=== PATIENT | female | born 1990 | race Two or more races ===

== ENCOUNTER 2016-11-12 14:01 | Emergency (ER) | payer OTHER ==
[2016-11-12] MEDS ORDERED: ONDANSETRON 4 MG/2 ML VIAL IVP STA (15:01)
[2016-11-12] MEDS ORDERED: HALOPERIDOL 5 MG/ML VIAL IVP STA (15:01)
[2016-11-12] MEDS ORDERED: SODIUM CHLORIDE 0.9% 1,000 ML IV ONE (15:01)
[2016-11-12] MEDS ORDERED: HALOPERIDOL 5 MG/ML VIAL ONE (15:04)
[2016-11-12] MEDS ORDERED: ONDANSETRON 4 MG/2 ML VIAL ONE (15:04)
[2016-11-12] MEDS ORDERED: BENZTROPINE 2 MG/2 ML AMP IVP STA (15:24)
[2016-11-12] MEDS ORDERED: BENZTROPINE 2 MG/2 ML AMP ONE (15:26)
== END 2016-11-12 16:29 | disposition home or self-care (01) ==
DX: G43.909 Migraine, unspecified, not intractable, without status migrainosus (principal); K52.9 Noninfective gastroenteritis and colitis, unspecified; F17.200 Nicotine dependence, unspecified, uncomplicated

== ENCOUNTER 2017-03-27 18:08 | Emergency (ER) | payer OTHER ==
[2017-03-27] MEDS ORDERED: predniSONE 20 MG TABLET PO STA (18:18)
[2017-03-27] MEDS ORDERED: HYDROmorphone 1 MG/ML SYRINGE IM STA ×3 (18:18→20:26)
[2017-03-27] MEDS ORDERED: KETOROLAC 60 MG/2 ML VIAL IM STA (18:18)
[2017-03-27] MEDS ORDERED: HYDROmorphone 1 MG/ML SYRINGE ONE ×3 (18:22→20:35)
[2017-03-27] MEDS ORDERED: predniSONE 20 MG TABLET ONE (18:23)
[2017-03-27] MEDS ORDERED: KETOROLAC 60 MG/2 ML VIAL ONE (18:23)
--- NOTE | 2017-03-27 18:34 | ED Physician Documentation ---
PD HPI BACK PAIN - Stated complaint Stated Complaint: L LEG PX - Chief complaint Chief Complaint: Ext Problem - History obtained from History obtained from: Patient - Additional information Additional information: Moving rocks 2 weeks ago at home and felt pain in Left back now worse with pain down posterior L buttock. Not associated with weakness, numbness, tingling legs or saddle anesthesia or incontinence. 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 : None HEENT: None Psych: Depression, Anxiety Musculoskeletal: Osteoarthritis, Other Derm: None - Past Surgical History Past Surgical History: Yes Ortho: Shoulder arthroplasty - Present Medications Home Medications: Ambulatory Orders Medication Instructions Recorded Confirmed traZODone [Desyrel] 100 mg PO DAILY 03/14/15 03/27/17 Loratadine [Claritin] 1 tab PO DAILY 11/16/15 03/27/17 Cyclobenzaprine [Flexeril] 10 mg PO TID PRN #20 tablet 03/27/17 Oxycodone HCl/Acetaminophen 1 - 2 tab PO Q4H PRN #15 tablet 03/27/17 [Percocet 5-325 mg Tablet] predniSONE [Deltasone] 20 mg PO [id number] #21 tab 03/27/17 - Allergies Allergies/Adverse Reactions: Allergies Allergy/AdvReac Type Severity Reaction Status Date / Time diphenhydramine HCl * AdvReac Itching Verified 03/27/17 18:21 [From Benadryl] haloperidol [From Haldol] AdvReac Itching Verified 03/27/17 18:21 haloperidol lactate * AdvReac Itching Verified 03/27/17 18:21 [From Haldol] - Social History Does the pt smoke?: Yes Smoking Status: Current every day smoker Does the pt drink ETOH?: Yes Does the pt have substance abuse?: No - Immunizations Immunizations are current?: Yes - POLST Patient has POLST: No PD ED PE NORMAL - Vitals Vital signs reviewed: Yes - General General: Alert and oriented X 3, Other (in pain/winces with motion) - Neck Neck: Supple, no meningeal sign - Cardiac Cardiac: RRR, No murmur - Respiratory Respiratory: No respiratory distress, Clear bilaterally - Abdomen Abdomen: Normal bowel sounds, Soft, Non tender - Back Back: No spinal TTP, Other (Tender L sciatic notch, The patient has equal and normal patellar and Achilles reflexes bilaterally. Normal sensation in all areas of the legs. Patient denies saddle anesthesia. Normal strength in flexion and extension at the ankles, knees and flexion of the hips.) - Extremities Extremities: No deformity - Neuro Neuro: Alert and oriented X 3, No motor deficit, No sensory deficit, Normal speech - Psych Psych: Normal mood, Normal affect Results - Vitals Vitals: Vital Signs - 24 hr 03/27/17 03/27/17 03/27/17 18:12 19:04 20:25 Temperature 36.7 C 37.1 C 36.7 C Heart Rate 97 83 69 Respiratory 20 20 20 Rate Blood Pressure 123/74 111/69 120/77 O2 Saturation 98 98 98 Oxygen O2 Source Room air PD MEDICAL DECISION MAKING - ED course ED course: Spinal epidural abscess was considered in this patient. The patient has no fever , is not diabetic, has no spinal tenderness, does not use IV drugs, and no bilateral neurologic symptoms. Therefore, spinal epidural abscess is considered exceedingly unlikely. She was administered divided doses of medications with good relief of her pain and became functional again. Remained afebrile. Departure - Departure Disposition: 01 Home, Self Care Clinical Impression: Sciatica of left side Condition: Good Record reviewed to determine appropriate education?: Yes Instructions: ED Sciatica Prescriptions: predniSONE [Deltasone] 20 mg PO [id number] #21 tab Cyclobenzaprine [Flexeril] 10 mg PO TID PRN #20 tablet PRN Reason: Pain Oxycodone HCl/Acetaminophen [Percocet 5-325 mg Tablet] 1 - 2 tab PO Q4H PRN #15 tablet PRN Reason: Pain Comments: Call your doctor to arrange a follow up appointment. Make the next available appointment. In the interim return anytime if worse or if new symptoms develop. Do not drink or drive while on narcotic pain medicine. Note that many narcotic pain relievers also contain tylenol/acetaminophen. Please ensure that your total dose of acetaminophen from all sources does not exceed 3 grams (3000mg) per day. You may constipated on this medication, take a stool softener such as "Colace" twice a day while you are on it. Also recommend a kaot-esn-ptjekdo laxative such as senna or MiraLAX any day that you do not have a bowel movement. If you received narcotic pain medication in the emergency department, do not drive or operate machinery for the next 24 hours. Forms: Activity restrictions Discharge Date/Time: 03/27/17 21:29
[2017-03-27] MEDS ORDERED: diazePAM INJ 5 MG/ML SYRINGE IM STA (19:05)
[2017-03-27] MEDS ORDERED: diazePAM INJ 5 MG/ML SYRINGE ONE (19:08)
[2017-03-27 20:25] VITALS: BP 120/77
[2017-03-27] MEDS ORDERED: oxyCODONE/ACET 5/325 Prepack 4 PO STA (21:13)
[2017-03-27] MEDS ORDERED: CYCLOBENZAPRINE 10 MG Prepack 2 PO PRN (21:13)
[2017-03-27] MEDS ORDERED: CYCLOBENZAPRINE 10 MG Prepack 2 PO ONE (21:16)
[2017-03-27] MEDS ORDERED: oxyCODONE/ACET 5/325 Prepack 4 PO ONE (21:16)
== END 2017-03-27 21:29 | disposition home or self-care (01) ==
LOC: ED 18:08
DX: M54.42 Lumbago with sciatica, left side (principal); M19.90 Unspecified osteoarthritis, unspecified site; F17.200 Nicotine dependence, unspecified, uncomplicated
CPT/HCPCS: 96372; 99283; J1170; J7512

== ENCOUNTER 2017-07-01 14:43 | Emergency (ER) | payer OTHER ==
[2017-07-01 14:54] VITALS: BP 125/80
[2017-07-01] MEDS ORDERED: DEXAMETHASONE 10 MG/ML VIAL PO STA (15:36)
[2017-07-01] MEDS ORDERED: HYDROcod/ACETAM 5/325 MG TABLET PO STA (15:36)
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
[2017-07-01] MEDS ORDERED: DEXAMETHASONE 10 MG/ML VIAL ONE (15:48)
[2017-07-01] MEDS ORDERED: HYDROcod/ACETAM 5/325 MG TABLET ONE (15:48)
== END 2017-07-01 16:19 | disposition home or self-care (01) ==
LOC: ED 14:43
DX: M54.42 Lumbago with sciatica, left side (principal); M54.41 Lumbago with sciatica, right side; M19.90 Unspecified osteoarthritis, unspecified site; F17.200 Nicotine dependence, unspecified, uncomplicated
CPT/HCPCS: 99283; A9270

== ENCOUNTER 2018-06-28 23:50 | Emergency (ER) | payer OTHER ==
[2018-06-29] VITALS: BP 124/88
[2018-06-29 00:08] LABS: BILIRUBIN,URINE NEGATIVE (NEGATIVE); GLUCOSE, URINE (UA) NEGATIVE (NEGATIVE); KETONES,URINE (UA) NEGATIVE (NEGATIVE); LEUKOCYTE ESTERASE, URINE SMALL (NEGATIVE); NITRITE,URINE NEGATIVE (NEGATIVE); OCCULT BLOOD,URINE LARGE (NEGATIVE); PROTEIN,URINE TRACE mg/dL (NEGATIVE); UROBILINOGEN,URINE 0.2 (NORMAL) E.U./dL (NORMAL)
[2018-06-29 00:10] LABS: CLARITY,URINE HAZY (CLEAR); HCG UR QUAL NEGATIVE
[2018-06-29 00:14] LABS: RBC,URINE TNTC /HPF (0-5)
[2018-06-29 00:15] LABS: BACTERIA,URINE Few /HPF (None Seen); SQUAMOUS EPITHELIAL CELL,UR FEW Squamous (<= Few)
[2018-06-29] MEDS ORDERED: IBUPROFEN 600 MG TABLET PO STA (00:23)
[2018-06-29] MEDS ORDERED: PHENAZOPYRIDINE 100 MG TABLET PO STA (00:23)
[2018-06-29] MEDS ORDERED: cephALEXin 250 MG CAPSULE PO STA (00:23)
--- NOTE | 2018-06-29 00:27 | ED Physician Documentation ---
PD HPI FEMALE - Stated complaint Stated Complaint: BLOOD IN URINE - Chief complaint Chief Complaint: General - History obtained from History obtained from: Patient - History of Present Illness Timing - onset: Today Timing - details: Gradual onset, Still present Associated symptoms: Pelvic pain, Dysuria, Urinary frequency, Hematuria Similar symptoms before: Has not had sx before Recently seen: Not recently seen - Additional information Additional information: Patient is a 28 year old female with no significant past medical history who is presenting to the emergency department for dysuria and hematuria. patient states that her symptoms started today and have become progressively worse. patient noticed blood in her urine this evening. patient took tylenol for pain with little relief. Review of Systems Ten Systems: 10 systems reviewed and negative Constitutional: denies: Fever, Chills GI: reports: Abdominal Pain. 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 HEENT: None Psych: Depression, Anxiety Musculoskeletal: Osteoarthritis, Other Derm: None - Past Surgical History Past Surgical History: Yes Ortho: Shoulder arthroplasty - Present Medications Home Medications: Ambulatory Orders Medication Instructions Recorded Confirmed HYDROcod/ACETAM 5/325 [[place] 5/325] 1 ea PO Q6H PRN #10 tablet 07/01/17 predniSONE [Deltasone] 20 mg PO [id number] #21 tab 07/01/17 Cephalexin [Keflex] 500 mg PO Q8HR 7 Days capsule 06/29/18 Ondansetron Odt [Zofran] 4 mg TL Q6H PRN #14 tablet 06/29/18 Phenazopyridine HCl [Pyridium] 200 mg PO TID PRN #6 tablet 06/29/18 - Allergies Allergies/Adverse Reactions: Allergies Allergy/AdvReac Type Severity Reaction Status Date / Time diphenhydramine HCl * AdvReac Itching Verified 06/29/18 00:00 [From Benadryl] haloperidol [From Haldol] AdvReac Itching Verified 06/29/18 00:00 haloperidol lactate * AdvReac Itching Verified 06/29/18 00:00 [From Haldol] - Social History Does the pt smoke?: Yes Smoking Status: Current every day smoker Does the pt drink ETOH?: Yes Does the pt have substance abuse?: No - Immunizations Immunizations are current?: Yes - POLST Patient has POLST: No PD ED PE NORMAL - Vitals Vital signs reviewed: Yes - General General: Alert and oriented X 3 - HEENT HEENT: Atraumatic - Cardiac Cardiac: RRR - Respiratory Respiratory: No respiratory distress - Derm Derm: Normal color, Warm and dry - Extremities Extremities: No deformity - Neuro Neuro: Alert and oriented X 3, No motor deficit, Normal speech - Psych Psych: Normal mood PD ED PE EXPANDED - General General: Alert, In Pain - Abdomen Abdomen: Tender to palpation, Suprapubic. No: Rebound, Guarding Results - Vitals Vitals: Vital Signs - 24 hr 06/28/18 23:59 Temperature 37.1 C Heart Rate 79 Respiratory 16 Rate Blood Pressure 124/88 H O2 Saturation 98 Oxygen O2 Source Room air - Labs Labs: Laboratory Tests 06/29/18 00:05 Urine Color YELLOW Urine Clarity HAZY Urine pH 6.0 Ur Specific Angle [place] 1.025 Urine Protein TRACE Urine Glucose (UA) NEGATIVE Urine Ketones NEGATIVE Urine Occult Blood LARGE H Urine Nitrite NEGATIVE Urine Bilirubin NEGATIVE Urine Urobilinogen 0.2 (NORMAL) Ur Leukocyte Esterase SMALL H Urine RBC TNTC H Urine WBC 11-25 H Ur Squamous Epith Cells FEW Squamous Urine Bacteria Few Ur Microscopic Review INDICATED Urine Culture Comments INDICATED Urine HCG, Qual NEGATIVE PD MEDICAL DECISION MAKING - ED course Complexity details: reviewed old records, reviewed results, re-evaluated patient, considered differential, d/w patient, d/w family ED course: Patient was seen and examined at bedside. urine was collected and consistent with cystitis. patient was treated with keflex, pyridium and ibuprofen. Patient was able to tolerate PO without difficulty. Patient required no further work up at this time and was stable for discharge with outpatient follow up. - Sepsis Event Vital Signs: Vital Signs - 24 hr 06/28/18 23:59 Temperature 37.1 C Heart Rate 79 Respiratory 16 Rate Blood Pressure 124/88 H O2 Saturation 98 Oxygen O2 Source Room air Departure - Departure Disposition: 01 Home, Self Care Clinical Impression: Cystitis with hematuria Condition: Good Instructions: ED UTI Cystitis Female Follow-Up: Hever Juarez MD [Primary Care Provider] - Within 3 Days Prescriptions: Cephalexin [Keflex] 500 mg PO Q8HR 7 Days capsule Ondansetron Odt [Zofran] 4 mg TL Q6H PRN #14 tablet PRN Reason: Nausea / Vomiting Phenazopyridine HCl [Pyridium] 200 mg PO TID PRN #6 tablet PRN Reason: dysuria Comments: Your symptoms today are being caused by a bladder infection. You have been started on antibiotics and will need to take them three times a day for the next week. you can take the pyridium, motrin and tylenol as needed for pain. You should follow up with your doctor if symtoms persist. you should return to the emergency department at any time for new, worsening or uncontrollable symptoms.
== END 2018-06-29 00:41 | disposition home or self-care (01) ==
LOC: ED 23:50
DX: N30.91 Cystitis, unspecified with hematuria (principal); F17.200 Nicotine dependence, unspecified, uncomplicated
CPT/HCPCS: 81001; 81025; 87086; 99283; A9270; 81003

== ENCOUNTER 2018-10-21 12:57 | Outpatient (CLI) | payer OTHER ==
[2018-10-21] MEDS ORDERED: GADOBUTROL 7.5 MMOL/7.5 ML VIAL ONE (13:04)
[2018-10-21] MEDS ORDERED: GADOBUTROL 7.5 MMOL/7.5 ML VIAL IVP ONE (14:28)
--- NOTE | 2018-10-21 14:45 | MRI Report ---
Reason: HYPERPROLACTINEMIA Procedure Date: 10/21/2018 Accession Number: [id number] / [id number] Procedure: MRI - Brain W/WO CPT Code: FULL RESULT: EXAM: MRI BRAIN WITHOUT AND WITH CONTRAST EXAM DATE: 10/21/2018 01:06 PM. CLINICAL HISTORY: 28-year-old woman with hyperprolactinemia COMPARISON: None. TECHNIQUE: Multiplanar, multisequence T1-weighted and fluid-sensitive MR sequences of the brain were performed. Sequences optimized for pituitary evaluation. Other: None. IV Contrast: 7.5 cc Gadavist. FINDINGS: Parenchyma: No evidence of acute infarct on diffusion weighted sequence. Parenchyma demonstrates normal signal intensity on T1- and T2-weighted sequences. No evidence of prior hemorrhage. No abnormal enhancement. Pituitary: Symmetric and normal in size measuring approximate 4.5 mm craniocaudal. Enhancement in the left adenohypophysis is mildly delayed, but margins are indistinct (for example, image 23, series 801), indeterminate. Signal is homogeneous on T2 weighted sequence. The stalk is midline. Suprasellar cistern is clear. Adjacent cavernous sinuses are symmetric and normal in size without evidence of underlying mass. Ventricles and Extra-axial Spaces: Ventricles are symmetric and normal in size for age. Extra-axial spaces are unremarkable. No abnormal enhancement. Orbits: Unremarkable. Sinuses: Paranasal sinuses and mastoid air cells are clear. Major Vascular Flow Voids: Intact. Dural Venous Sinuses and Major Central Veins: Patent on post-contrast images. IMPRESSION: 1. Enhancement in the left adenohypophysis of the pituitary is mildly delayed, but no discrete lesion is identified. Findings are indeterminate and may represent normal, asymmetric enhancement but underlying microadenoma cannot be excluded. RADIA
== END 2018-10-21 12:58 | disposition home or self-care (01) ==
LOC: DI 12:57
PROVIDERS: ATTEND Family Medicine
DX: E22.1 Hyperprolactinemia (principal)
CPT/HCPCS: 70553; A9585

== ENCOUNTER 2019-04-11 13:31 | Emergency (ER) | payer OTHER ==
[2019-04-11 13:40] VITALS: BP 120/75
--- NOTE | 2019-04-11 15:36 | ED Physician Documentation ---
History of Present Illness - Stated complaint Stated Complaint: LEFT KNEE INJURY - Chief complaint Chief Complaint: Trauma Ext - History obtained from History obtained from: Patient - Additonal information Additional information: Patient is a 29-year-old female with history of bipolar disorder presenting with left knee pain and swelling of unknown origin. Patient denies any particular trauma, fall, or inciting incident. Patient describes anterior pain directly below the patella. She denies any overlying skin changes. She does have limited range of motion because of pain and swelling, but denies any change in sensation or strength to the leg. Patient has been able to bear weight without issue. No other improving or worsening factors noted. 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 HEENT: None Psych: Depression, Anxiety, Bipolar disorder Musculoskeletal: Osteoarthritis, Other Derm: None - Past Surgical History Past Surgical History: Yes Ortho: Shoulder arthroplasty - Present Medications Home Medications: Ambulatory Orders Medication Instructions Recorded Confirmed Divalproex Sodium [Depakote] 250 mg DAILY 04/11/19 04/11/19 - Allergies Allergies/Adverse Reactions: Allergies Allergy/AdvReac Type Severity Reaction Status Date / Time diphenhydramine HCl * AdvReac Itching Verified 06/29/18 00:00 [From Benadryl] haloperidol [From Haldol] AdvReac Itching Verified 06/29/18 00:00 haloperidol lactate * AdvReac Itching Verified 06/29/18 00:00 [From Haldol] - Social History Does the pt smoke?: Yes Smoking Status: Current every day smoker Does the pt drink ETOH?: Yes Does the pt have substance abuse?: No - Immunizations Immunizations are current?: Yes - POLST Patient has POLST: No PD ED PE NORMAL - Vitals Vital signs reviewed: Yes - General General: Alert and oriented X 3, No acute distress, Well developed/nourished - HEENT HEENT: Atraumatic, Moist mucous membranes - Cardiac Cardiac: Strong equal pulses (Cap refill brisk) - Respiratory Respiratory: No respiratory distress - Derm Derm: Normal color, Warm and dry, No rash - Extremities Extremities: No deformity, Normal ROM s pain. No: No tenderness to palpate (Mild tenderness directly below the left knee with appreciable joint swelling) - Neuro Neuro: Alert and oriented X 3, No motor deficit, No sensory deficit - Psych Psych: Normal mood, Normal affect Results - Vitals Vitals: Vital Signs - 24 hr 04/11/19 13:36 Temperature 36.5 C Heart Rate 103 H Respiratory 16 Rate Blood Pressure 120/75 O2 Saturation 99 Oxygen O2 Source Room air PD MEDICAL DECISION MAKING - ED course Complexity details: reviewed results, re-evaluated patient, considered differential, d/w patient ED course: Patient denies specific injury or trauma and have low suspicion for bony abnormality such as dislocation or fracture, plan to obtain plain film. Do not find evidence that would indicate gout, joint infection, sialitis, abscess, or lymphangitis. Additionally, have low suspicion for DVT at this time. Most concerning is for meniscus or ligamentous injury. Discussed obtaining plain film with patient who is amenable to this plan. Plain films returned without evidence of acute abnormalities. Discussed treating for likely meniscus or ligamentous injury with knee immobilizer, nonweightbearing status, crutches, but patient declined. She is more comfortable with other supportive cares, as well as orthopedic surgery follow-up as an outpatient. Discussed return precautions as well. Departure - Departure Disposition: 01 Home, Self Care Clinical Impression: Knee injury Qualifiers: Encounter type: initial encounter Laterality: left Qualified Code(s): S89.92XA - Unspecified injury of left lower leg, initial encounter Condition: Good Instructions: ED Knee Pain UKO Follow-Up: JUAREZ BRAVO MD [Primary Care Provider] - Viji Keller MD [Provider Admit Priv/Credential] - Within 3 Days Comments: Recommend supportive cares such as elevation, ice, ibuprofen/Tylenol. May also use inca-[id number] knee bracing or Noble bandaging for stability and compression. Recommend avoiding strenuous activities or exercise that would worsen your discomfort or pain. Please follow-up with your primary care physician and orthopedic surgery in the next 2 to 3 days. Return to ED sooner if experience worsening symptoms or have other concerns.
--- NOTE | 2019-04-11 16:34 | XRAY Report ---
Reason: no trauma, anterior pain, swelling Procedure Date: 04/11/2019 Accession Number: [id number] / [id number] Procedure: XR - Knee 3 View LT CPT Code: FULL RESULT: EXAM: LEFT KNEE RADIOGRAPHY EXAM DATE: 04/11/2019 04:13 PM. CLINICAL HISTORY: No trauma, anterior pain, swelling. COMPARISON: None. TECHNIQUE: 3 views. FINDINGS: Bones: Normal. No fractures or bone lesions. Joints: Trace joint effusion. No subluxation or significant degenerative changes. Soft Tissues: Normal. No soft tissue swelling. IMPRESSION: Trace joint effusion. RADIA
== END 2019-04-11 16:50 | disposition home or self-care (01) ==
LOC: ED 13:31
DX: S89.92XA Unspecified injury of left lower leg, initial encounter (principal); X58.XXXA Exposure to other specified factors, initial encounter; F17.200 Nicotine dependence, unspecified, uncomplicated
CPT/HCPCS: 99282; 99283

== ENCOUNTER 2019-05-30 23:11 | Emergency (ER) | payer OTHER ==
--- NOTE | 2019-05-31 00:33 | ED Physician Documentation ---
History of Present Illness - Stated complaint Stated Complaint: BACK PAIN - Chief complaint Chief Complaint: Trauma Ch/Bk - Additonal information Additional information: This is a 29-year-old female with a history of bipolar disorder, anxiety, depression, who presents with lower back pain. Patient states that she was lifting her dog at 14:15 today when she felt a pop in her back. Then she had gradual pain which has progressed over the afternoon. Now she has significant pain with any flexion or extension. The pain is located over the left lower back to the left of midline, and radiates somewhat down her bilateral legs. She states that she had to crawl around her house initially because the pain was so significant. She was able to ambulate to her car. She denies any numbness or weakness. No history of cancer, back surgeries. She denies bowel or bladder incontinence, or saddle anesthesia. Review of Systems Constitutional: denies: Fever Cardiac: denies: Chest pain / pressure Respiratory: denies: Dyspnea GI: denies: Abdominal Pain : denies: Unable to Void, Incontinent Musculoskeletal: reports: Back pain PD PAST MEDICAL HISTORY - Past Medical History Cardiovascular: None Respiratory: None Neuro: None Endocrine/Autoimmune: None GI: None [employer]: None : None HEENT: None Psych: Depression, Anxiety, Bipolar disorder Musculoskeletal: Osteoarthritis, Other Derm: None - Past Surgical History Past Surgical History: Yes Ortho: Shoulder arthroplasty - Present Medications Home Medications: Ambulatory Orders Medication Instructions Recorded Confirmed Divalproex Sodium [Depakote] 250 mg DAILY 04/11/19 05/31/19 Cyclobenzaprine [Flexeril] 10 mg PO TID PRN #20 tablet 05/31/19 Lidocaine Patch 5% [Lidoderm Patch] 1 patch TOP DAILY PRN #10 patch 05/31/19 Oxycodone HCl/Acetaminophen 1 each PO Q6H PRN #5 tablet 05/31/19 [Percocet 5-325 mg Tablet] RX: Ibuprofen 600 mg PO Q6H PRN #30 tablet 05/31/19 - Allergies Allergies/Adverse Reactions: Allergies Allergy/AdvReac Type Severity Reaction Status Date / Time diphenhydramine HCl * AdvReac Itching Verified 05/30/19 23:17 [From Benadryl] haloperidol [From Haldol] AdvReac Itching Verified 05/30/19 23:17 haloperidol lactate * AdvReac Itching Verified 05/30/19 23:17 [From Haldol] - Social History Does the pt smoke?: Yes Smoking Status: Current every day smoker Does the pt drink ETOH?: Yes Does the pt have substance abuse?: No - Immunizations Immunizations are current?: Yes - POLST Patient has POLST: No PD ED PE NORMAL - Vitals Vital signs reviewed: Yes - General General: Alert and oriented X 3 - HEENT HEENT: PERRL - Neck Neck: Supple, no meningeal sign - Cardiac Cardiac: RRR - Respiratory Respiratory: No respiratory distress - Abdomen Abdomen: Soft, Non tender, Non distended - Back Back: Other (No visible abnormality or deformity. There is tenderness in the lower L spine in the left paraspinous region. No significant midline bony tenderness. Patient has 5 out of 5 strength in ankle dorsiflexion and plantarflexion bilaterally, sensation light touch is intact over the entire lower extremities. She is able to flex her hips/leg raise with discomfort.) - Derm Derm: Warm and dry - Extremities Extremities: No deformity - Neuro Neuro: Alert and oriented X 3 - Psych Psych: Normal mood, Normal affect Results - Vitals Vitals: Vital Signs - 24 hr 05/30/19 05/31/19 05/31/19 23:13 01:22 02:40 Temperature 36.5 C Heart Rate 92 82 80 Respiratory 16 16 16 Rate Blood Pressure 142/91 H 125/76 127/78 O2 Saturation 98 98 98 05/31/19 05/31/19 03:34 05:55 Temperature 36.5 C Heart Rate 86 62 Respiratory 16 18 Rate Blood Pressure 129/87 H 136/89 H O2 Saturation 98 99 Oxygen O2 Source Room air - Labs Labs: Laboratory Tests 05/31/19 00:45 Serum HCG, Qual NEGATIVE - Rads (name of study) XR lumbar spine Radiology: Prelim report reviewed (No acute osseous abnormality. L5-S1 disc space narrowing.) PD MEDICAL DECISION MAKING - ED course Complexity details: considered differential (Strain, sprain, sciatica, spasm, fracture, disc herniation) ED course: Patient presents with back pain after a twisting event, she is neurovascularly intact. XR shows no acute osseous abnormality and my suspicion for occult fracture is very low given her mechanism and exam. She was given valium, then oxycodone, with improvement in her pain. She was able to ambulate. Her post-void residual is normal at 18cc and she has no neurologic symptoms or red flags that suggest spinal cord compression. After several hours of observation she is feeling well enough to go home. I discussed supportive care and prescribed cyclobenzaprine, and lidocaine patches. I also prescribed 5 oxycodone tablets to be used only for breakthrough pain. I recommended PCP follow up. I reviewed return precautions and patient was discharged home. Departure - Departure Disposition: 01 Home, Self Care Clinical Impression: Back pain Condition: Stable Instructions: ED Sprain Strain Lumbar Follow-Up: JUAREZ BRAVO MD [Primary Care Provider] - Within 1 week Prescriptions: Cyclobenzaprine [Flexeril] 10 mg PO TID PRN #20 tablet PRN Reason: Spasms RX: Ibuprofen 600 mg PO Q6H PRN #30 tablet PRN Reason: Pain Lidocaine Patch 5% [Lidoderm Patch] 1 patch TOP DAILY PRN #10 patch PRN Reason: pain Oxycodone HCl/Acetaminophen [Percocet 5-325 mg Tablet] 1 each PO Q6H PRN #5 tablet PRN Reason: pain Comments: You were seen today for back pain. Your x-rays were reassuring. This appears to be a strain with muscle spasm. Use ice, ibuprofen, and avoid straining the back. You can use the lidocaine patches, flexeril as well, use the oxycodone only for breakthrough pain. Return to the ED with any \weakness, numbness, bowel or bladder problems. Do not drink alcohol or drive while taking narcotic pain medication. Note that many narcotic pain relievers also contain Tylenol/acetaminophen. Please ensure that your total dose of acetaminophen from all sources does not exceed 3 g (3000 mg) per day. You may get constipated while on this medication. Take a stool softener such as Colace twice a day while you are on it. Also add an [id number] laxative such as senna or MiraLAX on any day that you do not have a bowel movement. If you received a narcotic pain medication or sedative while in the emergency department, do not drive for the next 24 hours. Discharge Date/Time: 05/31/19 06:00
[2019-05-31] MEDS ORDERED: diazePAM 5 MG TABLET PO STA (00:34)
[2019-05-31 01:16] LABS: HCG,QUALITATIVE BLOOD NEGATIVE
--- NOTE | 2019-05-31 02:26 | XRAY Report ---
Reason: Severe lower back pain Procedure Date: 05/31/2019 Accession Number: [id number] / [id number] Procedure: XR - Lumbar Spine 2 View CPT Code: FULL RESULT: EXAM: LUMBOSACRAL SPINE RADIOGRAPHY EXAM DATE: 05/31/2019 02:02 AM. CLINICAL HISTORY: Severe lower back pain. COMPARISONS: None. TECHNIQUE: 3 views. FINDINGS: Alignment: Normal. No spondylolisthesis or scoliosis. Bones: Five [id number] lumbar vertebral bodies are present. No fractures or bone lesions. Disks: Mild L5-S1 disk height loss. Otherwise unremarkable. Facets: No degenerative changes. Sacroiliac Joints: Unremarkable. Soft Tissues: Normal. The visualized bowel gas pattern is normal. IMPRESSION: 1. No acute osseous abnormality seen in the lumbar spine. 2. Mild L5-S1 disk height loss. [facility]
[2019-05-31] MEDS ORDERED: oxyCODONE 5 MG TABLET PO STA (02:35)
[2019-05-31] MEDS ORDERED: ACETAMINOPHEN 325 MG TABLET PO STA (02:35)
[2019-05-31] MEDS ORDERED: CYCLOBENZAPRINE 10 MG TABLET PO STA (05:49)
[2019-05-31] MEDS ORDERED: IBUPROFEN 600 MG TABLET PO STA (05:49)
[2019-05-31 06:37] VITALS: BP 136/89
== END 2019-05-31 06:00 | disposition home or self-care (01) ==
LOC: ED 23:11
DX: M54.5 Low back pain (principal); X50.0XXA Overexertion from strenuous movement or load, initial encounter; Y93.89 Activity, other specified; F17.200 Nicotine dependence, unspecified, uncomplicated
CPT/HCPCS: 36415; 72100; 84703; 99284; A9270